=== PATIENT | female | born 1975 | race Caucasian/White ===

== ENCOUNTER 2017-03-20 05:29 | Inpatient (IN) | payer OTHER ==
[~2017-03-20] VITALS: Ht 172.7 cm; Wt 81.3 kg
[2017-03-20] MEDS ORDERED: OXYTOCIN 30U/ 0.9% NaCL 500ML 500 ML IV SCH ×2 (05:31→07:48)
[2017-03-20 05:43] VITALS: BP 123/66
[2017-03-20] MEDS ORDERED: PREN-3 PO (05:43)
[2017-03-20 05:56] LABS: HEMATOCRIT 40.7 % (34.6-47.8); HEMOGLOBIN 13.7 g/dL (11.7-16.4); WHITE BLOOD COUNT 13.1 x10^3/uL (3.4-10)
[2017-03-20] MEDS: LACTATED RINGERS 1,000 ML IV SCH ×6 (05:58→23:07)
[2017-03-20] MEDS ORDERED: SODIUM CITRATE/CITRIC ACID 30 ML UDC PO ONE (06:00)
[2017-03-20] MEDS: PLEASE ENTER ALLERGIES MC SCH ×6 (06:00→08:00)
[2017-03-20] MEDS ORDERED: LACTATED RINGERS 1,000 ML IVBOLUS ONE (06:00)
[2017-03-20] MEDS ORDERED: METOCLOPRAMIDE 5 MG/ML, 2ML IV ONE (06:00)
[2017-03-20] MEDS ORDERED: ONDANSETRON 2MG/ML, 2ML IVPush ONE (06:00)
[2017-03-20] MEDS ORDERED: NEWBORN KIT ONE (06:36)
[2017-03-20] MEDS ORDERED: OXYTOCIN 30U/ 0.9% NaCL 500ML 500 ML ONE (06:37)
[2017-03-20] MEDS ORDERED: METOCLOPRAMIDE 5 MG/ML, 2ML ONE ×2 (06:37→07:37)
[2017-03-20] MEDS ORDERED: SODIUM CITRATE/CITRIC ACID 30 ML UDC ONE (06:37)
[2017-03-20] MEDS ORDERED: MEPERIDINE/PF 25MG/0.5ML IVPush PRN (07:30)
[2017-03-20] MEDS ORDERED: morphine SULFATE 10 MG/ML, 1ML IV PRN (07:30)
[2017-03-20] MEDS ORDERED: ONDANSETRON 2MG/ML, 2ML IVPush PRN (07:30)
[2017-03-20] MEDS ORDERED: EPHEDRINE 50 MG/ML, 1ML IVPush PRN (07:30)
[2017-03-20] MEDS ORDERED: FENTANYL PF 100 MCG/2ML IV PRN (07:30)
[2017-03-20] MEDS ORDERED: OXYcodone 5 MG/5 ML ORAL.SOL UDC PO PRN (07:30)
[2017-03-20] MEDS ORDERED: OXYTOCIN 10 UNITS/ML, 1ML ONE ×2 (07:37)
[2017-03-20] MEDS ORDERED: CEFAZOLIN 1,000 MG ONE (07:37)
[2017-03-20] MEDS ORDERED: KETOROLAC 30 MG/1 ML ONE (07:37)
[2017-03-20] MEDS ORDERED: EPHEDRINE 50 MG/ML, 1ML ONE (07:37)
[2017-03-20] MEDS ORDERED: LACTATED RINGERS 1,000 ML IV SCH ×2 (07:48)
[2017-03-20] MEDS ORDERED: BUPIVACAINE 0.25% ONE ×2 (07:55→08:02)
[2017-03-20] MEDS ORDERED: SIMETHICONE 80 MG CHEW TAB PO PRN ×2 (08:00→13:30)
[2017-03-20] MEDS ORDERED: DOCUSATE 100 MG CAPSULE PO PRN (08:00)
[2017-03-20] MEDS ORDERED: OXYcodone/APAP 5/325MG TABLET PO PRN ×2 (08:00→13:30)
[2017-03-20] MEDS ORDERED: OXYcodone IR 5MG TABLET PO PRN (08:00)
[2017-03-20] MEDS ORDERED: morphine SULFATE 10 MG/ML, 1ML IVPush PRN (08:00)
[2017-03-20] MEDS ORDERED: CALCIUM CARBONATE 500 MG TAB.CHEW PO PRN ×2 (08:00→13:30)
[2017-03-20] MEDS ORDERED: KETOROLAC 30 MG/1 ML IV SCH (08:00)
[2017-03-20] MEDS ORDERED: DIPH,PERTUSS(ACELL),TET VAC/PF NC IM-VACC PRN (08:00)
[2017-03-20] MEDS ORDERED: MISOPROSTOL 200 MCG TABLET PR PRN (08:00)
[2017-03-20] MEDS ORDERED: MEASLES,MUMPS&RUBELLA VACC/PF 0.5 ML SQ-VACC PRN (08:00)
[2017-03-20] MEDS ORDERED: IBUPROFEN 600 MG TABLET PO PRN (08:00)
[2017-03-20] MEDS ORDERED: ONDANSETRON 2MG/ML, 2ML IV PRN ×2 (08:00→13:30)
[2017-03-20] MEDS ORDERED: PRENATAL VIT/IRON/FA 1 EACH TABLET PO SCH (09:00)
[2017-03-20] MEDS ORDERED: OXYcodone 5 MG/5 ML ORAL.SOL UDC ONE (09:55)
[2017-03-20 11:20] VITALS: BP 117/58
[2017-03-20] MEDS: OXYTOCIN 30U/ 0.9% NaCL 500ML 500 ML IV SCH ×2 (13:07→23:07)
[2017-03-20] MEDS: KETOROLAC 30 MG/1 ML IV SCH ×3 (13:11→20:31)
[2017-03-20] MEDS: OXYcodone IR 5MG TABLET PO PRN ×3 (13:34→22:02)
[2017-03-20 16:00] VITALS: BP 111/62
[2017-03-20 16:21] LABS: HEMATOCRIT 33.8 % (34.6-47.8); HEMOGLOBIN 11.3 g/dL (11.7-16.4); WHITE BLOOD COUNT 17.4 x10^3/uL (3.4-10)
[2017-03-20 20:30] VITALS: BP 114/69
[2017-03-20] MEDS: DOCUSATE 100 MG CAPSULE PO PRN (22:02)
[2017-03-21 00:28] VITALS: BP 97/57
[2017-03-21] MEDS: OXYcodone IR 5MG TABLET PO PRN ×6 (02:11→22:49)
[2017-03-21] MEDS: KETOROLAC 30 MG/1 ML IV SCH ×4 (02:16→20:14)
[2017-03-21 04:30] VITALS: BP 89/52
[2017-03-21] MEDS: LACTATED RINGERS 1,000 ML IV SCH ×5 (05:07→21:07)
[2017-03-21 07:05] VITALS: BP 95/58
[2017-03-21] MEDS: DOCUSATE 100 MG CAPSULE PO PRN ×2 (08:39→22:50)
[2017-03-21] MEDS: PRENATAL VIT/IRON/FA 1 EACH TABLET PO SCH (08:39)
[2017-03-21] MEDS: OXYTOCIN 30U/ 0.9% NaCL 500ML 500 ML IV SCH ×2 (09:07→19:07)
[2017-03-21 20:15] VITALS: BP 116/60
[2017-03-21 21:00] VITALS: BP 92/48
[2017-03-22 00:30] VITALS: BP 105/54
[2017-03-22] MEDS: KETOROLAC 30 MG/1 ML IV SCH ×2 (02:48→08:15)
[2017-03-22] MEDS: OXYcodone IR 5MG TABLET PO PRN ×6 (02:48→23:30)
[2017-03-22] MEDS: LACTATED RINGERS 1,000 ML IV SCH ×4 (05:07→15:07)
[2017-03-22] MEDS: OXYTOCIN 30U/ 0.9% NaCL 500ML 500 ML IV SCH ×2 (05:07→15:07)
[2017-03-22 07:45] VITALS: BP 90/52
[2017-03-22] MEDS: DOCUSATE 100 MG CAPSULE PO PRN ×2 (08:15→20:49)
[2017-03-22] MEDS: PRENATAL VIT/IRON/FA 1 EACH TABLET PO SCH (08:15)
[2017-03-22] MEDS: IBUPROFEN 600 MG TABLET PO PRN ×2 (14:42→20:49)
[2017-03-22 20:00] VITALS: BP 101/82
[2017-03-23] MEDS: IBUPROFEN 600 MG TABLET PO PRN ×2 (03:00→09:03)
[2017-03-23] MEDS: OXYcodone IR 5MG TABLET PO PRN ×3 (03:25→12:20)
[2017-03-23 07:45] VITALS: BP 94/49
[2017-03-23] MEDS: PRENATAL VIT/IRON/FA 1 EACH TABLET PO SCH (07:54)
[2017-03-23] MEDS: DOCUSATE 100 MG CAPSULE PO PRN (07:54)
[2017-03-23] MEDS ORDERED: DOCU-131 PO (11:32)
[2017-03-23] MEDS ORDERED: IBUP-1222 PO (11:32)
[2017-03-23] MEDS ORDERED: OXYC-302 PO (11:33)
== END 2017-03-23 13:15 | disposition home or self-care (01) | DRG 766 ==
LOC: LDIP 05:29 → 2NW 11:13
PROVIDERS: ADMIT Obstetrics & Gynecology Gynecology; ATTEND Obstetrics & Gynecology Gynecology
PROC: 10D00Z1 Extraction of Products of Conception, Low, Open Approach (ICD-10-PCS; principal; 2017-03-20)
DX: O32.1XX0 Maternal care for breech presentation, not applicable or unspecified (principal); O09.523 Supervision of elderly multigravida, third trimester; Z37.0 Single live birth; Z3A.39 39 weeks gestation of pregnancy; Z82.3 Family history of stroke; Z88.8 Allergy status to other drugs, medicaments and biological substances; Z82.61 Family history of arthritis; Z82.49 Family history of ischemic heart disease and other diseases of the circulatory system; Z84.89 Family history of other specified conditions
CPT/HCPCS: 36415; 82803; 85025; 86850; 86900; J0690; J1885; J2405; J3490; J2590; J2765; J7120

== ENCOUNTER 2019-01-30 08:51 | Outpatient (CLI) | payer OTHER ==
[~2019-01-30] VITALS: Ht 172.7 cm; Wt 82.3 kg
[~2019-01-30 08:51] MED LIST: DOCU-131 PO; IBUP-1222 PO; OXYC-302 PO; PREN-3 PO
[2019-01-30 09:02] VITALS: BP 116/73
[2019-01-30] MEDS ORDERED: CHOL500045 PO (09:20)
[2019-01-30] MEDS ORDERED: cranberry (09:20)
[2019-01-30] MEDS ORDERED: probiotic (09:20)
== END 2019-01-30 09:30 | disposition home or self-care (01) ==
LOC: LDOP 08:51
PROVIDERS: ATTEND Obstetrics & Gynecology
DX: O09.523 Supervision of elderly multigravida, third trimester (principal); O36.5930 Maternal care for other known or suspected poor fetal growth, third trimester, not applicable or unspecified; Z3A.38 38 weeks gestation of pregnancy
CPT/HCPCS: 59025; 99211; G0463